=== PATIENT | female | born 1985 | race Caucasian/White ===

== ENCOUNTER 2019-04-07 18:14 | Emergency (ER) | payer BC, SELFPAY | END 2019-04-07 23:09 | disposition home or self-care (01) | PROVIDERS: Family Provider Family Medicine | DX: O03.9 Complete or unspecified spontaneous abortion without complication (principal); Z87.891 Personal history of nicotine dependence; Z88.0 Allergy status to penicillin | CPT/HCPCS: 36415; 76856; 84702; 85025; 99283 ==

== ENCOUNTER 2020-06-11 10:13 | Outpatient (CLI) | payer BC, SELFPAY ==
--- NOTE | 2020-06-11 10:17 | MM_ITS ---
WS: [id number] BILATERAL DIGITAL DIAGNOSTIC MAMMOGRAM MAMMOGRAPHY WITH CAD CLINICAL INFORMATION: LEFT BREAST PAIN COMPARISON: None. TECHNIQUE: Bilateral CC, MLO, and ML views. FINDINGS: The breasts are composed of heterogeneous fibroglandular density, which can limit the detection of sm all underlying mass lesions. No suspicious focal mass, asymmetry, calcifications, or architectural distortion. No evidence of bobbi gnancy. A few benign punctate calcifications. Ultrasound is pending ULTRASOUND BREAST LEFT TECHNIQUE: Ultrasound left breast focused area of concern. CLINICAL INFORMATION: LEFT BREAST PAIN COMPARISON: None. FINDINGS: Ultrasound left breast area of concern Ultrasound left breast at the 12 to 1:00 position. Dense underlying brain tissue. No evidence of cyst ic or solid mass. No suspicious findings. No lesions to target for biopsy. MM/[place] [id number] IMPRESSION: BI-RADS: 2-Benign FOLLOW UP: Age 41 RECOMMEND ANNUAL SCREENING MAMMOGRAPHY AGE 41
== END 2020-06-11 10:14 | disposition home or self-care (01) ==
LOC: RADSHAW 10:15
PROVIDERS: PCP Family Medicine; Visit Provider Family Medicine
DX: N64.4 Mastodynia (principal)
CPT/HCPCS: 76642; 77066